=== PATIENT | female | born 1965 | race Caucasian/White ===

== ENCOUNTER 2017-03-01 12:32 | Emergency (ER) | payer SELFPAY ==
--- NOTE | 2017-03-01 13:45 | RADIOLOGY REPORT (SQ) ---
EXAM DESCRIPTION: ANKLE LEFT COMPLETE; FOOT LEFT COMPLETE COMPLETED DATE/TIME: 03/01/2017 1:37 pm REASON FOR STUDY: injry COMPARISON: None. NUMBER OF VIEWS: Three views. TECHNIQUE: AP, lateral, and oblique radiographic images acquired of the left ankle and left foot LIMITATIONS: None. FINDINGS: MINERALIZATION: Normal. BONES: No acute fracture or dislocation. No worrisome bone lesions. Tiny plantar calcaneal spur. JOINTS: No effusions. SOFT TISSUES: Medial soft tissue swelling. OTHER: No other significant finding. IMPRESSION: SOFT TISSUE SWELLING WITHOUT FRACTURE IDENTIFIED. CALCANEAL SPURRING. TECHNICAL DOCUMENTATION: JOB ID: [id number] [employer]- All Rights Reserved
--- NOTE | 2017-03-01 13:45 | RADIOLOGY REPORT (SQ) ---
EXAM DESCRIPTION: ANKLE LEFT COMPLETE; FOOT LEFT COMPLETE COMPLETED DATE/TIME: 03/01/2017 1:37 pm REASON FOR STUDY: injry COMPARISON: None. NUMBER OF VIEWS: Three views. TECHNIQUE: AP, lateral, and oblique radiographic images acquired of the left ankle and left foot LIMITATIONS: None. FINDINGS: MINERALIZATION: Normal. BONES: No acute fracture or dislocation. No worrisome bone lesions. Tiny plantar calcaneal spur. JOINTS: No effusions. SOFT TISSUES: Medial soft tissue swelling. OTHER: No other significant finding. IMPRESSION: SOFT TISSUE SWELLING WITHOUT FRACTURE IDENTIFIED. CALCANEAL SPURRING. TECHNICAL DOCUMENTATION: JOB ID: [id number] [employer]- All Rights Reserved
--- NOTE | 2017-03-01 13:47 | ER Document Report ---
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 She is able to bear more weight. It bruised almost immediately and there is an abrasion. She is allergic to tetanus shots but her tetanus antibody titer is high, that is checked by her PCP. Associated Symptoms: None Exacerbated by: Walking Relieved by: Denies Similar symptoms previously: No Recently seen / treated by doctor: No - ROS ROS below otherwise negative: Yes Systems Reviewed and Negative: Yes All other systems reviewed and negative - DERM Skin Color: Normal Past Medical History - General Information source: Patient - Social History Smoking Status: Never Smoker Frequency of alcohol use: None Drug Abuse: None Lives with: Family Family History: Reviewed & Not Pertinent - Medical History Medical History: Negative Renal/ Medical History: Denies: Hx Peritoneal Dialysis Surgical Hx: Negative Vertical Provider Document - CONSTITUTIONAL Agree With Documented VS: Yes Exam Limitations: No Limitations General Appearance: No Apparent Distress - HEENT HEENT: Atraumatic, Normocephalic - NECK Neck: Supple - MUSCULOSKELETAL/EXTREMETIES Musculoskeletal/Extremeties: MAEW, FROM, Tender, Edema, Eccymosis Notes: medial left ankle, soft tissue tender, superficial abrasion over malleolus, n/v intact, non tender knee and foot, non tender heel. - NEURO Level of Consciousness: Awake, Alert - DERM Integumentary: Warm, Dry Course - Re-evaluation Re-evalutation: 03/01/17 X-ray is negative per radiologist Procedures - Immobilization Left Ankle Time completed: 14:30 Pre-Proc Neuro Vasc Exam: Normal Immobilizer type: Posterior ankle Performed by: PCT Post-Proc Neuro Vasc Exam: Normal Alignment checked and good: Yes Discharge - Discharge Clinical Impression: Abrasion Crushing injury of left ankle Qualifiers: Encounter type: initial encounter Qualified Code(s): S97.02XA - Crushing injury of left ankle, initial encounter Condition: Good Disposition: HOME, SELF-CARE Instructions: Use of Crutches ([facility]), Ice & Elevation ([facility]), Temporary Splint ( [facility]), Splint Precautions ([facility]), Abrasions ([facility]), Antibiotic Ointment Protection ([facility]), Crush Injury ([facility]) Additional Instructions: splint this week elevate crutches this week see orthopedic doctor for follow up over the counter motrin for inflammation Please complete the patient satisfaction survey if you get one, and return it.. If you do not receive a survey, then you can go to the [facility] website, [email or web address] and place your comments about your very good care. Thank you very much. It was a pleasure being your medical provider today. Prescriptions: Hydrocodone Bit/Acetaminophen [Hydrocodon-Acetaminophen 5-325] 1 - 2 each PO Q4HP PRN #15 tablet PRN Reason: Referrals: GURINDER WILKERSON MD [Primary Care Provider] - Follow up as needed RADU ASHLEY MD [ACTIVE STAFF] - Follow up in 3-5 days
[2017-03-01 13:48] VITALS: BP 118/78
[2017-03-01] MEDS ORDERED: HYDROCODONE/ACETAMINOPHEN 5-325 MG TABLET PO ONE (14:14)
== END 2017-03-01 14:28 | disposition home or self-care (01) ==
LOC: ER 12:32
DX: S97.02XA Crushing injury of left ankle, initial encounter (principal); S90.512A Abrasion, left ankle, initial encounter; W55.19XA Other contact with horse, initial encounter; Y92.79 Other farm location as the place of occurrence of the external cause
CPT/HCPCS: 99283